=== PATIENT | female | born 1970 | race Caucasian/White ===

== ENCOUNTER 2022-04-17 00:52 | Day surgery (SDC) | payer BC, SELFPAY ==
[2022-04-10 13:56] VITALS: BMI 25.2
--- NOTE | 2022-04-10 14:00 | PC.NURSE ---
Report to the Outpatient Waiting Room, entrance under the green pavilion located off [facility], at time 0630 on date 04/17/22. Planned Procedure Time: 0830. Time changes happen often and if your time is changed the preop area will call you the afternoon before. - You and your visitor will be asked to self-screen and do not enter if you have any COVID symptoms. - We encourage only one visitor and NO visitors under age 16 are allowed at this time. Your visitor will receive communication by the phone number that is given day of service. - The patient visitor is requested to social distance or may leave the building when not with patient due to restrictions. - A mask is OPTIONAL required within the hospital. Patients may have clear liquids (water, carbonated beverages, clear teas, apple juice) until 3 hours prior to surgery with a maximum of 20 ounces. - No food from midnight until time of surgery Take the following medications with a SIP of water the morning of surgery: LEVOTHYROXINE Medications to discontinue per physician: N/A Date to take last dose: N/A Please no make-up, nail belizean, hairspray, perfume, deodorant, or body powder the day of surgery. No jewelry (including any body piercings) or valuables the day of surgery, leave them at home. Please take a shower or bath the night before, or the morning of, surgery with an antibacterial soap. Wear comfortable, loose fitting clothing. - Jewelry must be removed prior to entering the operating room. Rings and piercings that are not removed may be cut off. - The hospital will not accept responsibility for valuables. - Please leave all valuables, including medications, at home the day of surgery. If you are going home after surgery, a licensed port cdl a driver must drive you home. - NO public transportation without another adult. - We recommend that an adult stay with you for 24 hours following discharge. - We also recommend that you do not drive, make important decision, drink alcoholic beverages, or take any drugs that were not prescribed by your health care provider for at least 24 hours after your discharge time. Follow any additional instructions given to you from your surgeon. If you or anyone in your household have experienced Covid symptoms in the past week, please notify your surgeon or the nurse liaison at the phone number below for possible testing. Telephone instructions given to PT - ANABELLE HEMANN and asked if any additional questions and then verbalized understanding. Patient advised to call surgeon office or pre surgery nurse liaison [phone] if any additional questions.
--- NOTE | 2022-04-15 12:28 | PM.IMHP ---
H&P: HPI History of Present Illness Date/Time: 04/15/22 12:28 Chief Complaint: Retained IUD Narrative: This is a 52-year-old 2 para 2 has an IUD in which we could not get out she is unable to have it done none in the office and will thus undergo hysteroscopic resection risks and benefits reviewed FORMERLY [facility], [facility] Past Medical History Medical History Mixed hyperlipidemia Family History Family History Mother Family history of hypothyroidism Family history of lupus erythematosus Sibling Family history of hypothyroidism Social History Social History Smoking status: Never smoker Second hand tobacco smoke exposure: No Alcohol intake: current Alcohol use details: RARE Substance use: never Substance use type: does not use Living arrangements: with family Spiritual care concerns: No Meds Home Medications and Allergies Home Medications Medication Instructions Recorded Confirmed Type atorvastatin 10 mg tablet 10 mg PO HS 04/10/22 04/10/22 History levothyroxine 75 mcg tablet 75 mcg PO DAILY 04/10/22 04/10/22 History Allergies Allergy/AdvReac Type Severity Reaction Status Date / Time No Known Allergies Allergy Unknown Verified 04/10/22 13:53 Exam Const: General: cooperative, healthy appearing, comfortable and well groomed Nutritional Appearance: average body habitus Orientation/consciousness: oriented to person, oriented to place and oriented to time HENMT: Head: normal to inspection Resp: Effort & Inspection: normal respiratory effort Cardio: Rate: regular rate Rhythm: regular rhythm Heart sounds: S1 normal heart sound present and S2 normal heart sound present GI: Inspection: normal to inspection : External Female Exam: normal external appearance Speculum Exam - Vagina: normal appearance of the vagina Speculum Exam - Cervix: normal appearance of the cervix Bimanual exam- vagina & uterus: soft Assessment and Plan Assessment and plan (1) Inflammation associated with retained intrauterine contraceptive device (IUD): Code(s): T83.69XA - Infection and inflammatory reaction due to other prosthetic device, implant and graft in genital tract, initial encounter Status: Acute Plan Hysteroscopic resection of IUD
--- NOTE | 2022-04-16 13:50 | WPDANESEPPF ---
Anes - Initial Pre Proc Eval Procedure: Operation Date: 04/17/22 08:30 Proposed Procedures p Hysteroscopy, Intrauterine Device Removal - Jorge Smith MD Date/Time: 04/16/22 13:50 Surgeon: Jorge Smith MD Pre Op Diagnosis: lost IUD Patient Data Age: 52 Gender: F Height: 1.57 m Weight: 62.6 kg Allergies Allergy/AdvReac Type Severity Reaction Status Date / Time No Known Allergies Allergy Unknown Verified 04/10/22 13:53 Home Medications Medication Instructions Recorded Confirmed Type atorvastatin 10 mg tablet 10 mg PO HS 04/10/22 04/10/22 History levothyroxine 75 mcg tablet 75 mcg PO DAILY 04/10/22 04/10/22 History hydrocodone 5 mg-acetaminophen 325 1 tablet PO Q4H PRN pain #20 tabs 04/17/22 Rx mg tablet Patient hx anesthesia problems: none Family hx anesthesia problems: none Results Review: All pre-operative results and documents have been reviewed as part of the pre-operative evaluation. [facility] Past Medical History Medical History (Updated 04/16/22 @ 13:50 by Akbar Campuzano MD) Hypothyroidism Inflammation associated with retained intrauterine contraceptive device (IUD) Mixed hyperlipidemia Family History Family History Mother Family history of hypothyroidism Family history of lupus erythematosus Sibling Family history of hypothyroidism Social History Social History Smoking status: Never smoker Second hand tobacco smoke exposure: No Alcohol intake: current Alcohol use details: RARE Substance use: never Substance use type: does not use Living arrangements: with family Spiritual care concerns: No Anes - Eval Final PreProcedure Day of Procedure 04/16/22 13:50 Patient weight: overweight Heart: regular rate and rhythm Lungs: clear to auscultation and normal air movement Airway: Mallampati scale class II Neurological: alert and oriented Last oral intake: >/= 8 hours ASA classification: II Emergent: no Anesthetic plan: proceed Anesthesia type and monitoring: general GIVS and LMA Results Review: All pre-operative results and documents have been reviewed as part of the pre-operative evaluation. Informed Consent: The patient's anesthetic plan and its attendant risks and benefits were discussed with the patient/family/POA. Questions were solicited and answers provided to the satisfaction of the patient/family/POA.
--- NOTE | 2022-04-17 06:52 | WPDHPUPDATE1 ---
History and Physical Update Update Date/Time: 04/17/22 06:52 History and Physical has been reviewed, including an updated exam of the patient. There are NO changes in the patient's condition. Risks, benefits, and alternatives have been discussed and questions answered. Patient agrees to proceed with procedure.
[2022-04-17 07:39] VITALS: BP 112/52; PULSE 80; RESP 14; TEMP 36.4; O2SAT 100
[2022-04-17] MEDS: ACETAMINOPHEN 500 MG TABLET 1000 MG PO (07:40)
[2022-04-17 07:43] LABS: Hematocrit 39.8 % (37.0-47.0); Hemoglobin 12.6 g/dL (12.0-15.0)
[2022-04-17] MEDS: LACTATED RINGERS 1,000 ML 30 ML IV CONT (08:19)
[2022-04-17] MEDS: LIDOCAINE 1% BUFFERED WITH 8.4% SODIUM BICARB 1 ML SYRINGE 10 ML INFILTRATE (08:49)
--- NOTE | 2022-04-17 08:53 | W.PM.PROC2 ---
Procedure Note - Detailed Date of Procedure 04/17/22 Pre-op Diagnosis lost IUD Post-op Diagnosis Same Procedure Performed Hysteroscopy / dilatation/ Surgeon Jorge Smith MD Anesthesia MAC and Local Indications is a 52-year-old female who is IUD was unable to be retrieved comfortably in the office Findings uterus sounded to 7cm the IUD was found intact. The cervical os was stenotic initially. Description of Procedure Patient was prepped fashion placed in dorsal lithotomy position. Under excellent IV sedation weighted speculum placed posterior fornix vagina. Anterior lip of the cervix grasped with a single-tooth tenaculum. 2.5cc 1% xylocaine anesthesia placed at 2, 4, 8, 10:00 a.m. of the cervix. Uterus sounded to 7cm. Serial dilatation with fragmented dilators performed followed by passage of the 5mm visualizing hysteroscope. Normal saline was used as visualizing medium. The IUD was seen retrieved with the polyp forceps and removed without difficulty no blood loss was estimated at1cc. All sponge all needle and instrument counts were correct. There were no immediate complications Estimated Blood Loss 1 Drains No Packing No Pathology None sent Complications No immediate complications Condition Stable Disposition PACU
[2022-04-17 08:58] VITALS: BP 99/52; PULSE 60; RESP 14; O2SAT 95
[2022-04-17 09:28] VITALS: BP 112/61; PULSE 70; RESP 16; O2SAT 98
[2022-04-17 09:45] VITALS: BP 115/58; PULSE 64; RESP 14; O2SAT 96
== END 2022-04-17 09:54 | disposition home or self-care (01) ==
PROVIDERS: Visit Provider Obstetrics & Gynecology
PROC: 0U5B8ZZ Destruction of Endometrium, Via Natural or Artificial Opening Endoscopic (ICD-10-PCS; CPT 58563; principal; 2022-04-17 08:30)
DX: T83.69XA Infection and inflammatory reaction due to other prosthetic device, implant and graft in genital tract, initial encounter (principal); Y84.8 Other medical procedures as the cause of abnormal reaction of the patient, or of later complication, without mention of misadventure at the time of the procedure; E03.9 Hypothyroidism, unspecified; E78.2 Mixed hyperlipidemia; Y84.9 Medical procedure, unspecified as the cause of abnormal reaction of the patient, or of later complication, without mention of misadventure at the time of the procedure
CPT/HCPCS: 58562; 36415; 85014; 85018; A9270; J2250; J2270; J2405; J2704; J7120